=== PATIENT | female | born 1990 | race Caucasian/White ===

== ENCOUNTER → 2017-11-04 | Outpatient (CLI) | payer OTHER ==
[~2017-11-04] MED LIST: GLYB2.5T2 PO; IBUP-1222 PO; OXYC-302 PO; prenatal gummies PO
[2017-11-04 07:27] LABS: BASOPHILS # (AUTO) 0.03 x10^3/uL (0-0.1); BASOPHILS % (AUTO) 0 % (0-1); EOSINOPHILS # (AUTO) 0.09 x10^3/uL (0-0.4); EOSINOPHILS % (AUTO) 1 % (1-7); LYMPHOCYTES # (AUTO) 2.03 x10^3/uL (1-3.4); LYMPHOCYTES % (AUTO) 26 % (22-44); MD NO; MEAN CORPUSCULAR HGB CONC 33.8 g/dL (32.4-35.8); MEAN CORPUSCULAR VOLUME 88.7 fL (80-100); MEAN PLATELET VOLUME 7.4 fL (7.4-10.4); MONOCYTES # (AUTO) 0.54 x10^3/uL (0.2-0.8); MONOCYTES % (AUTO) 7 % (2-9); NEUTROPHILS # (AUTO) 5.18 x10^3/uL (1.8-6.8); NEUTROPHILS % (AUTO) 66 % (42-75); PLATELET COUNT 263 x10^3/uL (130-400); RED BLOOD COUNT 4.63 x10^6/uL (3.82-5.3); RED CELL DISTRIBUTION WIDTH 13.5 % (9.6-15.2)
[2017-11-04 07:34] LABS: CHLORIDE 105 mmol/L (98-107)
[2017-11-04 07:35] LABS: ALANINE AMINOTRANSFERASE 23 U/L (12-78); ALBUMIN 3.6 g/dL (3.4-5.0); ANION GAP 9 mmol/L (5-15); CHOLESTEROL, TOTAL 217 mg/dL (140-239); CREATININE 1.01 mg/dL (0.55-1.02)
[2017-11-04 07:37] LABS: ALKALINE PHOSPHATASE 82 U/L (45-117); BILIRUBIN,TOTAL 0.3 mg/dL (0.2-1.0); CHOL/HDL RATIO 4.7; HDL CHOL % 21 % (28-40); HDL CHOLESTEROL (DIRECT) 46 mg/dL (40-60); LDL CHOLESTEROL,CALCULATED 129 mg/dL (54-169); LDL/HDL RATIO 2.8 (0.5-3.0); TOTAL PROTEIN 7.5 g/dL (6.4-8.2); TRIGLYCERIDES 208 mg/dL (50-200); VLDL CHOLESTEROL 42 mg/dL (0-25)
[2017-11-04 09:12] LABS: HEMOGLOBIN A1C 5.4 % (4.2-6.3)
== END | disposition home or self-care (01) ==
LOC: LAB 07:06
PROVIDERS: ATTEND Plastic Surgery
DX: Z01.812 Encounter for preprocedural laboratory examination (principal); Z11.3 Encounter for screening for infections with a predominantly sexual mode of transmission; E78.00 Pure hypercholesterolemia, unspecified; R73.03 Prediabetes
CPT/HCPCS: 36415; 80053; 80061; 83036; 84702; 84703; 85025; 86592; 87806; G0475

== ENCOUNTER 2017-11-18 08:40 | Inpatient (IN) | payer OTHER ==
[~2017-11-18] VITALS: Ht 160 cm; Wt 80.3 kg
[2017-11-18 09:25] LABS: BASOPHILS # (AUTO) 0.04 x10^3/uL (0-0.1); BASOPHILS % (AUTO) 1 % (0-1); EOSINOPHILS # (AUTO) 0.04 x10^3/uL (0-0.4); EOSINOPHILS % (AUTO) 1 % (1-7); LYMPHOCYTES # (AUTO) 1.11 x10^3/uL (1-3.4); LYMPHOCYTES % (AUTO) 13 % (22-44); MD NO; MEAN CORPUSCULAR HEMOGLOBIN 29.6 pg (27.0-34.8); MEAN CORPUSCULAR HGB CONC 33.6 g/dL (32.4-35.8); MEAN CORPUSCULAR VOLUME 88.1 fL (80-100); MEAN PLATELET VOLUME 6.3 fL (7.4-10.4); MONOCYTES # (AUTO) 0.38 x10^3/uL (0.2-0.8); MONOCYTES % (AUTO) 4 % (2-9); NEUTROPHILS # (AUTO) 6.96 x10^3/uL (1.8-6.8); NEUTROPHILS % (AUTO) 82 % (42-75); PLATELET COUNT 215 x10^3/uL (130-400); RED BLOOD COUNT 4.14 x10^6/uL (3.82-5.3); RED CELL DISTRIBUTION WIDTH 13.9 % (9.6-15.2)
[2017-11-18 09:36] LABS: ALBUMIN 2.6 g/dL (3.4-5.0); ANION GAP 9 mmol/L (5-15); CALCIUM 8.7 mg/dL (8.5-10.1); CHLORIDE 104 mmol/L (98-107); CREATININE 0.73 mg/dL (0.55-1.02)
[2017-11-18] MEDS ORDERED: CEPH500T PO (10:09)
[2017-11-18] MEDS ORDERED: APIXABAN 5 MG TABLET PO ONE (10:30)
[2017-11-18] MEDS ORDERED: APIXABAN 5 MG TABLET ONE (11:04)
[2017-11-18] MEDS ORDERED: OMNIPAQUE 350 MG/ML, 100ML BOTTLE ONE (11:39)
[2017-11-18] MEDS ORDERED: ONDANSETRON 2MG/ML, 2ML IVPush PRN (13:00)
[2017-11-18] MEDS ORDERED: KETOROLAC 30 MG/1 ML IV PRN (13:00)
[2017-11-18] MEDS ORDERED: ACETAMINOPHEN 325 MG TABLET PO PRN (13:00)
[2017-11-18] MEDS ORDERED: POLYETHYLENE GLYCOL 17 GM PACKET PO PRN (13:00)
[2017-11-18] MEDS ORDERED: morphine SULFATE 10 MG/ML, 1ML IVPush PRN (13:00)
[2017-11-18 13:52] VITALS: BP 127/85
[2017-11-18] MEDS: ENOXAPARIN 80 MG/0.8 ML SQ SCH (14:25)
[2017-11-18] MEDS ORDERED: CEPHALEXIN 500 MG CAPSULE PO SCH (16:00)
[2017-11-18] MEDS ORDERED: WARFARIN 1 MG TABLET PO-COUM SCH (18:00)
[2017-11-18 18:02] LABS: INTERNATIONAL NORMALIZED RATIO 0.97 (0.93-1.1)
[2017-11-18] MEDS: OXYcodone/APAP 5/325MG TABLET PO PRN (18:21)
[2017-11-18] MEDS: WARFARIN 3 MG TABLET PO-COUM SCH (18:21)
[2017-11-18 19:40] VITALS: BP 116/80
[2017-11-18] MEDS: CEPHALEXIN 500 MG CAPSULE PO SCH (20:20)
[2017-11-19 01:54] VITALS: BP 112/74
[2017-11-19] MEDS: OXYcodone/APAP 5/325MG TABLET PO PRN ×3 (02:09→21:48)
[2017-11-19] MEDS: ENOXAPARIN 80 MG/0.8 ML SQ SCH ×2 (02:10→12:54)
[2017-11-19 06:09] LABS: INTERNATIONAL NORMALIZED RATIO 1.04 (0.93-1.1); PROTHROMBIN TIME 10.7 Seconds (9.6-11.5)
[2017-11-19 06:50] VITALS: BP 117/81
[2017-11-19] MEDS: CEPHALEXIN 500 MG CAPSULE PO SCH ×3 (08:47→21:00)
[2017-11-19 14:05] VITALS: BP 128/88
[2017-11-19] MEDS: WARFARIN 3 MG TABLET PO-COUM SCH (17:28)
[2017-11-19 19:51] VITALS: BP 117/82
[2017-11-20] MEDS: ENOXAPARIN 80 MG/0.8 ML SQ SCH (01:24)
[2017-11-20 02:05] VITALS: BP 117/76
[2017-11-20 06:04] LABS: INTERNATIONAL NORMALIZED RATIO 2.08 (0.93-1.1); PROTHROMBIN TIME 21.1 Seconds (9.6-11.5)
[2017-11-20] MEDS: CEPHALEXIN 500 MG CAPSULE PO SCH (08:40)
[2017-11-20 08:53] VITALS: BP 117/81
[2017-11-20] MEDS ORDERED: POLY17PO5 PO (10:46)
[2017-11-20] MEDS ORDERED: WARF5TAB PO (11:08)
[2017-11-20] MEDS ORDERED: SIMV40TA PO (11:43)
== END 2017-11-20 12:30 | disposition home or self-care (01) | DRG 175 ==
LOC: ED 10:37 → SUATTDRO 12:17 → EDIP 12:39 → 4EST 13:38
PROVIDERS: ADMIT Internal Medicine; ATTEND Internal Medicine
DX: I26.99 Other pulmonary embolism without acute cor pulmonale (principal); J96.91 Respiratory failure, unspecified with hypoxia; I82.432 Acute embolism and thrombosis of left popliteal vein; J98.11 Atelectasis; I82.412 Acute embolism and thrombosis of left femoral vein; E66.9 Obesity, unspecified; Z68.31 Body mass index [BMI] 31.0-31.9, adult; Z88.2 Allergy status to sulfonamides; E78.5 Hyperlipidemia, unspecified
CPT/HCPCS: 36415; 71275; 80048; 81240; 81241; 82040; 85025; 85300; 85301; 85303; 85598; 85610; 85613; 85670; 85730; 85732; 86146; 86147; 93005; 93306; 99285; G0378; J1650; Q9967

== ENCOUNTER → 2018-07-03 | Outpatient (CLI) | payer OTHER ==
[~2018-07-03] MED LIST changes: +CEPH500T PO; +POLY17PO5 PO; +SIMV40TA PO; +WARF5TAB PO
[2018-07-07 12:43] LABS: HEMOGLOBIN A1C 5.8 % (4.2-6.3)
== END | disposition home or self-care (01) ==
LOC: LAB 10:43
PROVIDERS: ATTEND Student in an Organized Health Care Education/Training Program
DX: Z34.82 Encounter for supervision of other normal pregnancy, second trimester (principal); Z3A.17 17 weeks gestation of pregnancy
CPT/HCPCS: 36415; 82105; 82677; 82950; 83036; 84702; 86336

== ENCOUNTER 2018-07-31 07:09 | Outpatient (CLI) | payer OTHER | END 2018-07-31 23:59 | disposition home or self-care (01) | LOC: LAB 07:09 | PROVIDERS: ATTEND Student in an Organized Health Care Education/Training Program | DX: Z34.82 Encounter for supervision of other normal pregnancy, second trimester (principal) | CPT/HCPCS: 36415; 82951 ==

== ENCOUNTER 2018-08-24 10:39 | Emergency (ER) | payer OTHER ==
[~2018-08-24] VITALS: Ht 160 cm; Wt 95.2 kg
--- NOTE | 2018-08-24 10:59 | NUR ---
L&D RN AT BEDSIDE FOR HEART TONES. HEART TONES HEARD AND PER L&D RN AT A RATE OF 130S.
[2018-08-24] MEDS ORDERED: PREN-3 PO (11:09)
[2018-08-24] MEDS ORDERED: ENOX40SY4 SQ (11:09)
--- NOTE | 2018-08-24 11:09 | NUR ---
PT ARRIVED AMBULATORY TO ROOM 37. PT DRESSED IN GOWN AND ATTACHED TO MONITOR. PT C/O CHEST PAIN, LOCALIZED TO LEFT SIDE SINCE YESTERDAY 08/23. PT STATES IT DOES NOT RADIATE, STATES NO EXACERBATING OR ALLEVIATING FACTORS, AND STATES IT IS SHARP AND ACHY. PT HAS HX GESTATIONAL DM AND PE IN NOVEMBER (TAKES LOVENOX SQ DAILY). PT AAO X 4, LUNG SOUNDS CLEAR AND O2 SAT 98% ON ROOM AIR. SINUS RHYTHM ON MONITOR, RATE 60-70S. BP STABLE 121/69. PULSES PRESENT THROUGHOUT, APPEARS IN NO ACUTE DISTRESS, RESTING COMFORTABLY ON GURNEY. PT NOT EXPERIENCING ANY ABDOMINAL CRAMPING OR VAGINAL BLEEDING, NO SOB, FEVERS/CHILLS AT HOME. PT STATES BILATERAL NUMBNESS/TINGLING/PAIN IN ARMS. PT ALSO STATES UPPER BACK PAIN WELL.
--- NOTE | 2018-08-24 11:13 | NUR ---
AT BEDSIDE FOR EXAM.
[2018-08-24] MEDS ORDERED: ACETAMINOPHEN 500 MG TABLET PO ONE (11:30)
[2018-08-24 11:33] LABS: BASOPHILS # (AUTO) 0.01 x10^3/uL (0-0.1); BASOPHILS % (AUTO) 0 % (0-1); EOSINOPHILS # (AUTO) 0.07 x10^3/uL (0-0.4); EOSINOPHILS % (AUTO) 1 % (1-7); LYMPHOCYTES # (AUTO) 2.26 x10^3/uL (1-3.4); LYMPHOCYTES % (AUTO) 36 % (22-44); MD NO; MEAN CORPUSCULAR HEMOGLOBIN 24.3 pg (27.0-34.8); MEAN CORPUSCULAR HGB CONC 31.9 g/dL (32.4-35.8); MEAN PLATELET VOLUME 8.1 fL (7.4-10.4); MONOCYTES # (AUTO) 0.48 x10^3/uL (0.2-0.8); MONOCYTES % (AUTO) 8 % (2-9); NEUTROPHILS # (AUTO) 3.38 x10^3/uL (1.8-6.8); NEUTROPHILS % (AUTO) 55 % (42-75); PLATELET COUNT 215 x10^3/uL (130-400); RED BLOOD COUNT 3.62 x10^6/uL (3.82-5.3); RED CELL DISTRIBUTION WIDTH 16.2 % (9.6-15.2)
[2018-08-24 11:41] LABS: ALBUMIN 2.5 g/dL (3.4-5.0); ANION GAP 8 mmol/L (5-15); CALCIUM 8.4 mg/dL (8.5-10.1); CHLORIDE 111 mmol/L (98-107); INTERNATIONAL NORMALIZED RATIO 0.93 (0.93-1.1); PROTHROMBIN TIME 9.8 Seconds (9.6-11.5)
--- NOTE | 2018-08-24 11:43 | NUR ---
PT TO US.
[2018-08-24] MEDS ORDERED: ACETAMINOPHEN 500 MG TABLET ONE (12:00)
--- NOTE | 2018-08-24 12:49 | NUR ---
PT BACK FROM US, RESTING IN [facility], AT BEDSIDE. CALL LIGHT WITHIN REACH.
[2018-08-24 12:52] VITALS: BP 130/79
--- NOTE | 2018-08-24 12:53 | NUR ---
TYLENOL OFFERED PER MD ORDER, PT REFUSED.
--- NOTE | 2018-08-24 13:53 | NUR ---
Patient/Caregiver given discharge instructions and they have confirmed that they understand the instructions. Patient ambulatory with steady gait.
== END 2018-08-24 13:54 | disposition home or self-care (01) ==
LOC: ED 13:20
DX: O26.892 Other specified pregnancy related conditions, second trimester (principal); M79.18 Myalgia, other site; R07.89 Other chest pain; Z3A.25 25 weeks gestation of pregnancy
CPT/HCPCS: 36415; 71045; 80048; 82040; 85025; 85610; 85730; 93005; 93970; 99284

== ENCOUNTER 2018-09-04 12:05 | Inpatient (IN) | payer OTHER ==
[~2018-09-04] VITALS: Ht 160 cm; Wt 98.7 kg
[~2018-09-04 12:05] MED LIST changes: +ENOX40SY4 SQ; +PREN-3 PO
[2018-09-04] MEDS ORDERED: OXYTOCIN 30U/ 0.9% NaCL 500ML 500 ML IV ONE ×2 (12:07→13:11)
[2018-09-04] MEDS ORDERED: LACTATED RINGERS 1,000 ML IV SCH (12:07)
[2018-09-04] MEDS ORDERED: OXYTOCIN 30U/ 0.9% NaCL 500ML 500 ML IV PRN ×2 (12:07→13:11)
[2018-09-04] MEDS ORDERED: D5%-LACTATED RINGERS 1,000 ML IV SCH (12:07)
[2018-09-04] MEDS ORDERED: ACETAMINOPHEN 325 MG TABLET PO PRN ×5 (12:30→13:30)
[2018-09-04] MEDS ORDERED: RHOGAM FROM BLOOD BANK 1 NOTE EA IM/IV PRN ×2 (12:30→13:30)
[2018-09-04] MEDS ORDERED: FENTANYL PF 100 MCG/2ML IVPush PRN ×2 (12:30)
[2018-09-04] MEDS ORDERED: morphine SULFATE 10 MG/ML, 1ML IVPush PRN ×2 (12:30)
[2018-09-04] MEDS ORDERED: ONDANSETRON 2MG/ML, 2ML IVPush PRN (12:30)
[2018-09-04] MEDS ORDERED: HYDROcodone/APAP 5/325 TABLET PO PRN (12:30)
[2018-09-04] MEDS ORDERED: OXYcodone/APAP 5/325MG TABLET PO PRN ×3 (12:30→13:30)
[2018-09-04] MEDS ORDERED: SODIUM CITRATE/CITRIC ACID 15 ML UDC PO PRN (12:30)
[2018-09-04] MEDS ORDERED: METOCLOPRAMIDE 5 MG/ML, 2ML IVPush PRN (12:30)
[2018-09-04] MEDS ORDERED: SODIUM CHLORIDE FLUSH 10ML SYR IVF PRN (12:30)
[2018-09-04 12:54] LABS: AMPHETAMINE SCREEN, URINE Negative (Negative); BARBITURATE SCREEN, URINE Negative (Negative); BENZODIAZEPINE SCREEN, URINE Negative (Negative); CANNABINOID SCREEN, URINE Positive (Negative); COCAINE SCREEN, URINE Negative (Negative); METHADONE SCREEN, URINE Negative (Negative); OPIATE SCREEN, URINE Negative (Negative)
[2018-09-04] MEDS ORDERED: MAGNESIUM SULFATE PMX 4GM/100M 100 ML IVPB ONE (13:00)
[2018-09-04] MEDS ORDERED: MAGNESIUM SULF. PMX 20GM/500ML 500 ML IV ONE ×2 (13:03→21:43)
[2018-09-04] MEDS ORDERED: MAGNESIUM SULFATE PMX 4GM/100M 100 ML ONE (13:03)
[2018-09-04] MEDS ORDERED: MISOPROSTOL 200 MCG TABLET ONE ×2 (13:18→20:42)
[2018-09-04] MEDS ORDERED: hydrALAzine 20 MG/ML, 1ML IVPush ONE (13:30)
[2018-09-04] MEDS ORDERED: OXYcodone/APAP 10/325MG TABLET PO PRN ×2 (13:30)
[2018-09-04] MEDS ORDERED: MISOPROSTOL 200 MCG TABLET PR PRN (13:30)
[2018-09-04] MEDS ORDERED: CARBOPROST TROMETHAMINE 250 MCG/ML, 1ML IM PRN (13:30)
[2018-09-04] MEDS ORDERED: IBUPROFEN 600 MG TABLET PO PRN (13:30)
[2018-09-04] MEDS: MISOPROSTOL 200 MCG TABLET VG SCH ×2 (13:30→14:21)
[2018-09-04] MEDS ORDERED: LABETALOL 5 MG/ML SYR. (IV ONLY) IVPush PRN ×3 (13:30)
[2018-09-04] MEDS: MAGNESIUM SULF. PMX 20GM/500ML 500 ML IV SCH ×2 (13:34→22:03)
[2018-09-04 13:59] LABS: BASOPHILS # (AUTO) 0.02 x10^3/uL (0-0.1); BASOPHILS % (AUTO) 0 % (0-1); EOSINOPHILS # (AUTO) 0.04 x10^3/uL (0-0.4); EOSINOPHILS % (AUTO) 0 % (1-7); LYMPHOCYTES # (AUTO) 2.81 x10^3/uL (1-3.4); LYMPHOCYTES % (AUTO) 28 % (22-44); MD NO; MEAN CORPUSCULAR HEMOGLOBIN 22.9 pg (27.0-34.8); MEAN CORPUSCULAR HGB CONC 30.4 g/dL (32.4-35.8); MEAN CORPUSCULAR VOLUME 75.1 fL (80-100); MEAN PLATELET VOLUME 8.6 fL (7.4-10.4); MONOCYTES # (AUTO) 0.72 x10^3/uL (0.2-0.8); MONOCYTES % (AUTO) 7 % (2-9); NEUTROPHILS # (AUTO) 6.34 x10^3/uL (1.8-6.8); NEUTROPHILS % (AUTO) 64 % (42-75); PLATELET COUNT 215 x10^3/uL (130-400); RED BLOOD COUNT 4.13 x10^6/uL (3.82-5.3); RED CELL DISTRIBUTION WIDTH 16.8 % (9.6-15.2)
[2018-09-04 14:20] LABS: FREE T4 (FREE THYROXINE) 0.8 ng/dL (0.76-1.46)
[2018-09-04] MEDS ORDERED: OXYTOCIN 30U/ 0.9% NaCL 500ML 500 ML ONE (14:42)
[2018-09-04 14:43] LABS: ALANINE AMINOTRANSFERASE 12 U/L (12-78); ALBUMIN 2.1 g/dL (3.4-5.0); ANION GAP 7 mmol/L (5-15); CALCIUM 8.2 mg/dL (8.5-10.1); CHLORIDE 112 mmol/L (98-107); CREATININE 1.09 mg/dL (0.55-1.02)
[2018-09-04 14:46] LABS: ALKALINE PHOSPHATASE 106 U/L (45-117); BILIRUBIN,TOTAL 0.2 mg/dL (0.2-1.0); TOTAL PROTEIN 5.6 g/dL (6.4-8.2)
[2018-09-04 15:06] LABS: HEMOGLOBIN A1C 5.9 % (4.2-6.3)
[2018-09-04 15:52] LABS: MICROSCOPIC AUTO
[2018-09-04 16:23] LABS: INTERNATIONAL NORMALIZED RATIO 0.89 (0.93-1.1); PROTHROMBIN TIME 9.4 Seconds (9.6-11.5)
[2018-09-04] MEDS ORDERED: FENTANYL/BUPIV./NS/PF 250 ML EPIDCONT ONE (18:00)
[2018-09-04 18:06] LABS: BASOPHILS # (AUTO) 0.03 x10^3/uL (0-0.1); BASOPHILS % (AUTO) 0 % (0-1); EOSINOPHILS # (AUTO) 0.18 x10^3/uL (0-0.4); EOSINOPHILS % (AUTO) 2 % (1-7); LYMPHOCYTES # (AUTO) 2.71 x10^3/uL (1-3.4); LYMPHOCYTES % (AUTO) 23 % (22-44); MD NO; MEAN CORPUSCULAR HGB CONC 31.8 g/dL (32.4-35.8); MEAN CORPUSCULAR VOLUME 75.4 fL (80-100); MEAN PLATELET VOLUME 8.4 fL (7.4-10.4); MONOCYTES # (AUTO) 0.76 x10^3/uL (0.2-0.8); MONOCYTES % (AUTO) 6 % (2-9); NEUTROPHILS # (AUTO) 8.13 x10^3/uL (1.8-6.8); NEUTROPHILS % (AUTO) 69 % (42-75); PLATELET COUNT 206 x10^3/uL (130-400); RED BLOOD COUNT 4.16 x10^6/uL (3.82-5.3); RED CELL DISTRIBUTION WIDTH 16.2 % (9.6-15.2)
[2018-09-04 18:07] LABS: MICROSCOPIC AUTO
[2018-09-04 18:14] LABS: INTERNATIONAL NORMALIZED RATIO 0.88 (0.93-1.1); PROTHROMBIN TIME 9.3 Seconds (9.6-11.5)
[2018-09-04 18:15] LABS: CULTURE INDICATED? NO
[2018-09-04 18:17] LABS: ALANINE AMINOTRANSFERASE 12 U/L (12-78); ALBUMIN 2.2 g/dL (3.4-5.0); ANION GAP 8 mmol/L (5-15); CALCIUM 7.9 mg/dL (8.5-10.1); CHLORIDE 110 mmol/L (98-107); CREATININE 1.22 mg/dL (0.55-1.02)
[2018-09-04 18:19] LABS: ALKALINE PHOSPHATASE 109 U/L (45-117); TOTAL PROTEIN 5.6 g/dL (6.4-8.2)
[2018-09-04 18:24] LABS: BILIRUBIN,TOTAL < 0.1 mg/dL (0.2-1.0)
[2018-09-04] MEDS ORDERED: FENTANYL PF 500 MCG, BUPIVACAINE/PF 0.5%, 30ML 62.5 ML in SODIUM CHLORIDE 0.9% 177.5 ML EPIDCONT SCH (18:30)
[2018-09-04] MEDS ORDERED: BUPIVACAINE 0.25% ONE (18:33)
[2018-09-04] MEDS: LACTATED RINGERS 1,000 ML IV SCH (18:37)
[2018-09-04] MEDS ORDERED: MISOPROSTOL 25 MCG TABLET ONE (20:37)
[2018-09-04 21:41] LABS: BASOPHILS # (AUTO) 0.01 x10^3/uL (0-0.1); BASOPHILS % (AUTO) 0 % (0-1); EOSINOPHILS # (AUTO) 0.03 x10^3/uL (0-0.4); EOSINOPHILS % (AUTO) 0 % (1-7); LYMPHOCYTES # (AUTO) 2.55 x10^3/uL (1-3.4); LYMPHOCYTES % (AUTO) 21 % (22-44); MD NO; MEAN CORPUSCULAR HEMOGLOBIN 23.2 pg (27.0-34.8); MEAN CORPUSCULAR HGB CONC 31.2 g/dL (32.4-35.8); MEAN CORPUSCULAR VOLUME 74.5 fL (80-100); MEAN PLATELET VOLUME 8.3 fL (7.4-10.4); MONOCYTES # (AUTO) 0.76 x10^3/uL (0.2-0.8); MONOCYTES % (AUTO) 6 % (2-9); NEUTROPHILS # (AUTO) 8.71 x10^3/uL (1.8-6.8); NEUTROPHILS % (AUTO) 72 % (42-75); PLATELET COUNT 209 x10^3/uL (130-400); RED BLOOD COUNT 4.09 x10^6/uL (3.82-5.3); RED CELL DISTRIBUTION WIDTH 17.1 % (9.6-15.2)
[2018-09-04 21:51] LABS: INTERNATIONAL NORMALIZED RATIO 0.89 (0.93-1.1); PROTHROMBIN TIME 9.4 Seconds (9.6-11.5)
[2018-09-04 21:54] LABS: ALANINE AMINOTRANSFERASE 12 U/L (12-78); ANION GAP 12 mmol/L (5-15); CALCIUM 7.8 mg/dL (8.5-10.1); CHLORIDE 107 mmol/L (98-107); CREATININE 1.19 mg/dL (0.55-1.02)
[2018-09-04 21:56] LABS: ALKALINE PHOSPHATASE 100 U/L (45-117); BILIRUBIN,TOTAL 0.1 mg/dL (0.2-1.0); TOTAL PROTEIN 5.5 g/dL (6.4-8.2)
[2018-09-04] MEDS ORDERED: FENTANYL/BUPIV./NS/PF 250 ML EPIDCONT SCH (22:30)
[2018-09-05] MEDS ORDERED: MISOPROSTOL 200 MCG TABLET ONE ×3 (02:45→11:58)
[2018-09-05] MEDS: MISOPROSTOL 200 MCG TABLET VG SCH ×2 (02:46→08:46)
[2018-09-05] MEDS ORDERED: MAGNESIUM SULF. PMX 20GM/500ML 500 ML IV ONE ×2 (07:00→20:04)
[2018-09-05] MEDS: LACTATED RINGERS 1,000 ML IV SCH (07:04)
[2018-09-05] MEDS: MAGNESIUM SULF. PMX 20GM/500ML 500 ML IV SCH ×2 (07:05→20:15)
[2018-09-05] MEDS ORDERED: hydrALAzine 20 MG/ML, 1ML ONE (09:35)
[2018-09-05] MEDS ORDERED: hydrALAzine 20 MG/ML, 1ML IVPush ONE ×4 (10:00)
[2018-09-05 10:23] LABS: BASOPHILS # (AUTO) 0.03 x10^3/uL (0-0.1); BASOPHILS % (AUTO) 0 % (0-1); EOSINOPHILS # (AUTO) 0.01 x10^3/uL (0-0.4); EOSINOPHILS % (AUTO) 0 % (1-7); LYMPHOCYTES # (AUTO) 2.15 x10^3/uL (1-3.4); LYMPHOCYTES % (AUTO) 15 % (22-44); MD NO; MEAN CORPUSCULAR HEMOGLOBIN 23.3 pg (27.0-34.8); MEAN CORPUSCULAR HGB CONC 31.4 g/dL (32.4-35.8); MEAN PLATELET VOLUME 8.5 fL (7.4-10.4); MONOCYTES # (AUTO) 0.78 x10^3/uL (0.2-0.8); MONOCYTES % (AUTO) 6 % (2-9); NEUTROPHILS # (AUTO) 11.39 x10^3/uL (1.8-6.8); NEUTROPHILS % (AUTO) 79 % (42-75); PLATELET COUNT 240 x10^3/uL (130-400); RED CELL DISTRIBUTION WIDTH 16.6 % (9.6-15.2)
[2018-09-05] MEDS ORDERED: ONDANSETRON 2MG/ML, 2ML ONE (10:23)
[2018-09-05] MEDS ORDERED: ONDANSETRON 2MG/ML, 2ML IVPush PRN (10:30)
[2018-09-05 10:33] LABS: ALANINE AMINOTRANSFERASE 12 U/L (12-78); ALBUMIN 2.3 g/dL (3.4-5.0); ANION GAP 12 mmol/L (5-15); CALCIUM 7.8 mg/dL (8.5-10.1); CHLORIDE 103 mmol/L (98-107)
[2018-09-05 10:39] LABS: ALKALINE PHOSPHATASE 126 U/L (45-117); BILIRUBIN, DIRECT < 0.1 mg/dL (0.1-0.2); BILIRUBIN,TOTAL 0.2 mg/dL (0.2-1.0); CREATININE 1.29 mg/dL (0.55-1.02); TOTAL PROTEIN 6.3 g/dL (6.4-8.2)
[2018-09-05 10:48] LABS: INTERNATIONAL NORMALIZED RATIO 0.88 (0.93-1.1); PROTHROMBIN TIME 9.3 Seconds (9.6-11.5)
[2018-09-05] MEDS ORDERED: LIDOCAINE 1%, 20ML ONE (11:59)
[2018-09-05] MEDS ORDERED: OXYTOCIN 30U/ 0.9% NaCL 500ML 500 ML IV SCH (12:50)
[2018-09-05] MEDS ORDERED: MAGNESIUM HYDROXIDE 8%, 30ML UDC PO PRN (13:00)
[2018-09-05] MEDS ORDERED: ACETAMINOPHEN 325 MG TABLET PO PRN ×2 (13:00)
[2018-09-05] MEDS ORDERED: OXYcodone/APAP 5/325MG TABLET PO PRN (13:00)
[2018-09-05] MEDS ORDERED: MEASLES,MUMPS&RUBELLA VACC/PF 0.5 ML SQ-VACC PRN (13:00)
[2018-09-05] MEDS ORDERED: DIPH,PERTUSS(ACELL),TET VAC/PF NC IM-VACC PRN (13:00)
[2018-09-05] MEDS ORDERED: ONDANSETRON 2MG/ML, 2ML IV PRN (13:00)
[2018-09-05] MEDS ORDERED: RHOGAM FROM BLOOD BANK 1 NOTE EA IM/IV ONE (13:00)
[2018-09-05] MEDS ORDERED: CALCIUM CARBONATE 500 MG TAB.CHEW PO PRN (13:00)
[2018-09-05] MEDS ORDERED: IBUPROFEN 600 MG TABLET PO PRN (13:00)
[2018-09-05] MEDS ORDERED: MISOPROSTOL 200 MCG TABLET PR PRN (13:00)
[2018-09-05] MEDS ORDERED: OXYTOCIN 30U/ 0.9% NaCL 500ML 500 ML ONE (15:13)
[2018-09-05] MEDS: ENOXAPARIN 40 MG/0.4 ML SQ SCH (18:10)
[2018-09-05 22:21] LABS: BASOPHILS # (AUTO) 0.02 x10^3/uL (0-0.1); BASOPHILS % (AUTO) 0 % (0-1); EOSINOPHILS # (AUTO) 0.19 x10^3/uL (0-0.4); EOSINOPHILS % (AUTO) 1 % (1-7); LYMPHOCYTES # (AUTO) 3.19 x10^3/uL (1-3.4); LYMPHOCYTES % (AUTO) 22 % (22-44); MD NO; MEAN CORPUSCULAR HEMOGLOBIN 23.9 pg (27.0-34.8); MEAN CORPUSCULAR HGB CONC 31.7 g/dL (32.4-35.8); MEAN CORPUSCULAR VOLUME 75.4 fL (80-100); MEAN PLATELET VOLUME 8.2 fL (7.4-10.4); MONOCYTES # (AUTO) 0.94 x10^3/uL (0.2-0.8); MONOCYTES % (AUTO) 6 % (2-9); NEUTROPHILS # (AUTO) 10.48 x10^3/uL (1.8-6.8); NEUTROPHILS % (AUTO) 71 % (42-75); PLATELET COUNT 194 x10^3/uL (130-400); RED BLOOD COUNT 4.14 x10^6/uL (3.82-5.3); RED CELL DISTRIBUTION WIDTH 16.7 % (9.6-15.2)
[2018-09-05 22:31] LABS: ALANINE AMINOTRANSFERASE 12 U/L (12-78); ALBUMIN 1.9 g/dL (3.4-5.0); ANION GAP 10 mmol/L (5-15); CALCIUM 7.1 mg/dL (8.5-10.1); CHLORIDE 105 mmol/L (98-107); CREATININE 1.15 mg/dL (0.55-1.02)
[2018-09-05 22:33] LABS: ALKALINE PHOSPHATASE 103 U/L (45-117); BILIRUBIN, DIRECT < 0.1 mg/dL (0.1-0.2); BILIRUBIN,TOTAL 0.2 mg/dL (0.2-1.0); TOTAL PROTEIN 5.4 g/dL (6.4-8.2)
[2018-09-06 05:03] LABS: BASOPHILS # (AUTO) 0.03 x10^3/uL (0-0.1); BASOPHILS % (AUTO) 0 % (0-1); EOSINOPHILS # (AUTO) 0.08 x10^3/uL (0-0.4); EOSINOPHILS % (AUTO) 1 % (1-7); LYMPHOCYTES # (AUTO) 2.41 x10^3/uL (1-3.4); LYMPHOCYTES % (AUTO) 24 % (22-44); MD NO; MEAN CORPUSCULAR HEMOGLOBIN 23.4 pg (27.0-34.8); MEAN CORPUSCULAR HGB CONC 31.2 g/dL (32.4-35.8); MEAN CORPUSCULAR VOLUME 75.1 fL (80-100); MEAN PLATELET VOLUME 8.5 fL (7.4-10.4); MONOCYTES % (AUTO) 7 % (2-9); NEUTROPHILS # (AUTO) 6.67 x10^3/uL (1.8-6.8); NEUTROPHILS % (AUTO) 68 % (42-75); PLATELET COUNT 171 x10^3/uL (130-400); RED BLOOD COUNT 4.07 x10^6/uL (3.82-5.3)
[2018-09-06 05:08] LABS: ALBUMIN 1.8 g/dL (3.4-5.0); ANION GAP 8 mmol/L (5-15); BILIRUBIN, DIRECT < 0.1 mg/dL (0.1-0.2); CALCIUM 7.2 mg/dL (8.5-10.1); CHLORIDE 108 mmol/L (98-107)
[2018-09-06 05:11] LABS: ALANINE AMINOTRANSFERASE 12 U/L (12-78); ALKALINE PHOSPHATASE 100 U/L (45-117); BILIRUBIN,TOTAL 0.2 mg/dL (0.2-1.0); CREATININE 1.05 mg/dL (0.55-1.02); TOTAL PROTEIN 5.2 g/dL (6.4-8.2)
[2018-09-06] MEDS ORDERED: PRENATAL VIT/IRON/FA 1 EACH TABLET ONE (09:13)
[2018-09-06] MEDS: PRENATAL VIT/IRON/FA 1 EACH TABLET PO SCH (09:15)
[2018-09-06] MEDS ORDERED: DOCUSATE 100 MG CAPSULE ONE (11:12)
[2018-09-06] MEDS: DOCUSATE 100 MG CAPSULE PO PRN (11:13)
[2018-09-06] MEDS ORDERED: MAGNESIUM SULF. PMX 20GM/500ML 500 ML IV ONE (12:32)
[2018-09-06] MEDS: MAGNESIUM SULF. PMX 20GM/500ML 500 ML IV SCH (13:31)
[2018-09-06] MEDS ORDERED: LABETALOL 100 MG TABLET ONE ×2 (15:01→22:22)
[2018-09-06] MEDS: LABETALOL 100 MG TABLET PO SCH ×2 (15:03→22:24)
[2018-09-06] MEDS: LACTATED RINGERS 1,000 ML IV SCH (15:46)
[2018-09-06] MEDS: ENOXAPARIN 40 MG/0.4 ML SQ SCH (18:06)
[2018-09-06] MEDS ORDERED: LACTATED RINGERS 1,000 ML IV SCH (18:30)
[2018-09-06] MEDS ORDERED: IBUPROFEN 600 MG TABLET ONE (20:38)
[2018-09-07] MEDS ORDERED: MAGNESIUM SULF. PMX 20GM/500ML 500 ML IV ONE (01:54)
[2018-09-07] MEDS: MAGNESIUM SULF. PMX 20GM/500ML 500 ML IV SCH (01:58)
[2018-09-07 05:08] LABS: BASOPHILS # (AUTO) 0.02 x10^3/uL (0-0.1); BASOPHILS % (AUTO) 0 % (0-1); EOSINOPHILS # (AUTO) 0.23 x10^3/uL (0-0.4); EOSINOPHILS % (AUTO) 2 % (1-7); LYMPHOCYTES # (AUTO) 2.71 x10^3/uL (1-3.4); LYMPHOCYTES % (AUTO) 25 % (22-44); MD NO; MEAN CORPUSCULAR HEMOGLOBIN 23.8 pg (27.0-34.8); MEAN CORPUSCULAR VOLUME 76.9 fL (80-100); MEAN PLATELET VOLUME 8.1 fL (7.4-10.4); MONOCYTES # (AUTO) 0.67 x10^3/uL (0.2-0.8); MONOCYTES % (AUTO) 6 % (2-9); NEUTROPHILS # (AUTO) 7.05 x10^3/uL (1.8-6.8); NEUTROPHILS % (AUTO) 66 % (42-75); PLATELET COUNT 164 x10^3/uL (130-400); RED BLOOD COUNT 3.65 x10^6/uL (3.82-5.3); RED CELL DISTRIBUTION WIDTH 16.9 % (9.6-15.2)
[2018-09-07 05:20] LABS: ALBUMIN 1.8 g/dL (3.4-5.0); ANION GAP 10 mmol/L (5-15); CALCIUM 7.1 mg/dL (8.5-10.1); CHLORIDE 108 mmol/L (98-107)
[2018-09-07 05:21] LABS: BILIRUBIN, DIRECT < 0.1 mg/dL (0.1-0.2)
[2018-09-07 05:24] LABS: ALANINE AMINOTRANSFERASE 13 U/L (12-78); ALKALINE PHOSPHATASE 87 U/L (45-117); BILIRUBIN,TOTAL 0.2 mg/dL (0.2-1.0); CREATININE 1.05 mg/dL (0.55-1.02); TOTAL PROTEIN 5.1 g/dL (6.4-8.2)
[2018-09-07] MEDS ORDERED: PRENATAL VIT/IRON/FA 1 EACH TABLET ONE (08:14)
[2018-09-07] MEDS ORDERED: DOCUSATE 100 MG CAPSULE ONE (08:15)
[2018-09-07] MEDS: PRENATAL VIT/IRON/FA 1 EACH TABLET PO SCH (08:16)
[2018-09-07] MEDS: DOCUSATE 100 MG CAPSULE PO PRN (08:16)
[2018-09-07] MEDS: SODIUM CHLORIDE FLUSH 3ML SYRINGE IVF SCH ×2 (09:00→21:22)
[2018-09-07] MEDS ORDERED: LABETALOL 100 MG TABLET ONE ×2 (09:11→21:08)
[2018-09-07] MEDS: LABETALOL 100 MG TABLET PO SCH ×2 (09:13→21:20)
[2018-09-07] MEDS: HYDROXYZINE PAMOATE 50MG CAP PO PRN ×2 (14:16→21:48)
[2018-09-07] MEDS: ENOXAPARIN 40 MG/0.4 ML SQ SCH (18:19)
[2018-09-08] MEDS ORDERED: LABE100T6 PO (07:08)
[2018-09-08] MEDS ORDERED: SERT50TA PO (07:09)
[2018-09-08] MEDS ORDERED: HYDR50CA PO (07:09)
[2018-09-08] MEDS ORDERED: LABETALOL 100 MG TABLET ONE (07:52)
[2018-09-08] MEDS: LABETALOL 100 MG TABLET PO SCH (08:08)
[2018-09-08] MEDS ORDERED: SERTRALINE 50MG TABLET PO SCH (09:00)
== END 2018-09-08 10:00 | disposition home or self-care (01) | DRG 805 ==
LOC: LDIP 12:05
PROVIDERS: ADMIT Student in an Organized Health Care Education/Training Program; ATTEND Student in an Organized Health Care Education/Training Program
PROC: 10E0XZZ Delivery of Products of Conception, External Approach (ICD-10-PCS; principal; 2018-09-04)
PROC: 3E0R3BZ Introduction of Anesthetic Agent into Spinal Canal, Percutaneous Approach (ICD-10-PCS; 2018-09-04)
PROC: 00HU33Z Insertion of Infusion Device into Spinal Canal, Percutaneous Approach (ICD-10-PCS; 2018-09-04)
PROC: 0T9B70Z Drainage of Bladder with Drainage Device, Via Natural or Artificial Opening (ICD-10-PCS; 2018-09-04)
DX: O36.4XX0 Maternal care for intrauterine death, not applicable or unspecified (principal); O60.14X0 Preterm labor third trimester with preterm delivery third trimester, not applicable or unspecified; Z37.1 Single stillbirth; O14.14 Severe pre-eclampsia complicating childbirth; Z3A.27 27 weeks gestation of pregnancy; O99.344 Other mental disorders complicating childbirth; F41.9 Anxiety disorder, unspecified; O32.1XX0 Maternal care for breech presentation, not applicable or unspecified; O77.0 Labor and delivery complicated by meconium in amniotic fluid; Z86.718 Personal history of other venous thrombosis and embolism; Z86.711 Personal history of pulmonary embolism
CPT/HCPCS: 36415; 80053; 80307; 81001; 82248; 83036; 83735; 84439; 84443; 84550; 85025; 85300; 85301; 85384; 85460; 85598; 85610; 85613; 85670; 85730; 85732; 86146; 86147; 86592; 86644; 86645; 86694; 86695; 86696; 86747; 86762; 86777; 86778; 86803; 86850; 86900; 87340; 87806; 88305; G0378; J1650; J2405; G0475; J0360; J3475; J7120

== ENCOUNTER → 2019-05-10 | Outpatient (CLI) | payer OTHER ==
[~2019-05-10] MED LIST changes: +HYDR50CA PO; +LABE100T6 PO; +OMNIPAQUE 350 MG/ML, 150 ML BOTTLE ONE; +SERT50TA PO
== END | disposition home or self-care (01) ==
LOC: CFH 14:22
PROVIDERS: ATTEND Family Medicine
DX: N28.1 Cyst of kidney, acquired (principal); M51.27 Other intervertebral disc displacement, lumbosacral region
CPT/HCPCS: 74178; Q9967

== ENCOUNTER 2020-05-30 08:38 | Emergency (ER) | payer OTHER ==
[~2020-05-30] VITALS: Ht 160 cm; Wt 62.0 kg
[~2020-05-30 08:38] MED LIST changes: -OMNIPAQUE 350 MG/ML, 150 ML BOTTLE ONE; -OXYC-302 PO; +OXYC1TAB14 PO; -WARF5TAB PO; +WARF5TAB2 PO
[2020-05-30] MEDS ORDERED: SODIUM CHLORIDE 0.9% 1,000ML IVBOLUS ONE (09:30)
[2020-05-30 09:33] LABS: BASOPHILS % (AUTO) 1 % (0-1); EOSINOPHILS % (AUTO) 0 % (1-7); LYMPHOCYTES % (AUTO) 12 % (22-44); MD NO; MEAN CORPUSCULAR HEMOGLOBIN 28.6 pg (27.0-34.8); MEAN CORPUSCULAR HGB CONC 33.9 g/dL (32.4-35.8); MEAN PLATELET VOLUME 7.7 fL (7.4-10.4); MONOCYTES % (AUTO) 7 % (2-9); NEUTROPHILS % (AUTO) 80 % (42-75); PLATELET COUNT 228 x10^3/uL (130-400); RED BLOOD COUNT 4.29 x10^6/uL (3.82-5.3); RED CELL DISTRIBUTION WIDTH 14.2 % (9.6-15.2)
--- NOTE | 2020-05-30 09:37 | NUR ---
LOUISE GARZA WAS AT [facility] FOR EVAL. IVF PER APR. PT TO US. VSS. SB/NSR, HAD NEAR SYNCOPAL IN CAR, DENIES NAUSEA AT THIS MOMENT. AWARE OF NEED FOR UA.
[2020-05-30 09:44] LABS: ALBUMIN 3.9 g/dL (3.4-5.0); ANION GAP 7 mmol/L (5-15); CALCIUM 8.9 mg/dL (8.5-10.1); CHLORIDE 107 mmol/L (98-107); CREATININE 0.97 mg/dL (0.55-1.02)
--- NOTE | 2020-05-30 09:57 | NUR ---
report to brent gudino. as
[2020-05-30 10:58] LABS: MICROSCOPIC INDICATED
--- NOTE | 2020-05-30 11:26 | NUR ---
PT RESTING IN [facility]. AWAITING MRI
[2020-05-30] MEDS ORDERED: ONDANSETRON 2MG/ML, 2ML ONE (11:46)
[2020-05-30] MEDS ORDERED: MORPHINE SULFATE 4 MG/ML, 1ML ONE (11:46)
--- NOTE | 2020-05-30 11:52 | NUR ---
PT REQ PAIN MEDS. SEE MAR FOR INTERVENTIONS
[2020-05-30] MEDS ORDERED: morphine SULFATE 10 MG/ML, 1ML IV ONE (12:00)
[2020-05-30] MEDS ORDERED: ONDANSETRON 2MG/ML, 2ML IVPush ONE (12:00)
--- NOTE | 2020-05-30 12:31 | NUR ---
PT TO MRI AT THIS TIME
--- NOTE | 2020-05-30 13:19 | NUR ---
PT RETURNED FROM MRI. RESTING IN [facility]. AWAITING RESULTS
[2020-05-30 14:04] VITALS: BP 116/54
--- NOTE | 2020-05-30 14:04 | NUR ---
PT RESTING IN [facility]. AWAITING MRI RESULTS
[2020-05-30] MEDS ORDERED: POTASSIUM CHLORIDE 20 MEQ TAB.ER.PRT PO ONE (15:00)
[2020-05-30] MEDS ORDERED: ONDANSETRON ODT 4 MG PO ONE (15:00)
[2020-05-30] MEDS ORDERED: ONDANSETRON ODT 4 MG ONE (15:02)
[2020-05-30] MEDS ORDERED: POTASSIUM CHLORIDE 20 MEQ TAB.ER.PRT ONE (15:02)
== END 2020-05-30 15:24 | disposition home or self-care (01) ==
LOC: ED 11:04
DX: O26.891 Other specified pregnancy related conditions, first trimester (principal); R55 Syncope and collapse; O21.1 Hyperemesis gravidarum with metabolic disturbance; Z3A.01 Less than 8 weeks gestation of pregnancy; Z86.718 Personal history of other venous thrombosis and embolism
CPT/HCPCS: 36415; 74181; 76801; 80048; 81001; 82040; 84702; 85025; 87086; 93005; 96361; 96374; 96375; 99285; J2270; J2405; J7030; Q0162

== ENCOUNTER 2020-06-30 07:49 | Outpatient (CLI) | payer OTHER ==
[2020-06-30 08:24] LABS: BASOPHILS % (AUTO) 1 % (0-1); EOSINOPHILS % (AUTO) 3 % (1-7); LYMPHOCYTES % (AUTO) 32 % (22-44); MEAN CORPUSCULAR HEMOGLOBIN 28.5 pg (27.0-34.8); MEAN CORPUSCULAR HGB CONC 33.1 g/dL (32.4-35.8); MEAN PLATELET VOLUME 7.7 fL (7.4-10.4); MONOCYTES % (AUTO) 8 % (2-9); NEUTROPHILS % (AUTO) 57 % (42-75); PLATELET COUNT 229 x10^3/uL (130-400); RED BLOOD COUNT 4.52 x10^6/uL (3.82-5.3); RED CELL DISTRIBUTION WIDTH 14.5 % (9.6-15.2)
[2020-06-30 08:35] LABS: ALANINE AMINOTRANSFERASE 16 U/L (12-78); ANION GAP 6 mmol/L (5-15); CHLORIDE 108 mmol/L (98-107); CHOLESTEROL, TOTAL 265 mg/dL (140-239); CREATININE 0.87 mg/dL (0.55-1.02)
[2020-06-30 08:37] LABS: MICROSCOPIC AUTO
[2020-06-30 08:45] LABS: ALKALINE PHOSPHATASE 49 U/L (45-117); BILIRUBIN,TOTAL 0.4 mg/dL (0.2-1.0); CHOL/HDL RATIO 5.5; HDL CHOL % 18 % (28-40); HDL CHOLESTEROL (DIRECT) 48 mg/dL (40-60); LDL CHOLESTEROL,CALCULATED 202 mg/dL (54-169); LDL/HDL RATIO 4.2 (0.5-3.0); TOTAL PROTEIN 7.5 g/dL (6.4-8.2); TRIGLYCERIDES 77 mg/dL (50-200); VLDL CHOLESTEROL 15 mg/dL (0-25)
[2020-06-30 08:47] LABS: MD NO
[2020-06-30 09:07] LABS: INTERNATIONAL NORMALIZED RATIO 1.02 (0.93-1.1); PROTHROMBIN TIME 10.9 Seconds (9.6-11.5)
== END 2020-06-30 23:59 | disposition home or self-care (01) ==
LOC: LAB 07:49
PROVIDERS: ATTEND Internal Medicine
DX: R31.29 Other microscopic hematuria (principal); E78.00 Pure hypercholesterolemia, unspecified; L65.9 Nonscarring hair loss, unspecified; R10.9 Unspecified abdominal pain; R73.01 Impaired fasting glucose; R73.03 Prediabetes; Z79.899 Other long term (current) drug therapy; Z86.718 Personal history of other venous thrombosis and embolism
CPT/HCPCS: 36415; 80053; 80061; 81001; 81241; 83036; 84443; 85025; 85210; 85300; 85301; 85303; 85306; 85598; 85610; 85613; 85670; 85730; 85732; 86146; 86147

== ENCOUNTER → 2020-11-02 | Outpatient (CLI) | payer OTHER ==
[~2020-11-02] MED LIST changes: +OXYC1TAB12 PO; -OXYC1TAB14 PO
[2020-11-02 08:48] LABS: BASOPHILS % (AUTO) 0 % (0-1); EOSINOPHILS % (AUTO) 1 % (1-7); LYMPHOCYTES % (AUTO) 23 % (22-44); MEAN CORPUSCULAR HEMOGLOBIN 29.2 pg (27.0-34.8); MEAN CORPUSCULAR HGB CONC 34.4 g/dL (32.4-35.8); MEAN PLATELET VOLUME 7.7 fL (7.4-10.4); MONOCYTES % (AUTO) 5 % (2-9); NEUTROPHILS % (AUTO) 71 % (42-75); PLATELET COUNT 208 x10^3/uL (130-400); RED BLOOD COUNT 4.24 x10^6/uL (3.82-5.3); RED CELL DISTRIBUTION WIDTH 13.3 % (9.6-15.2)
== END | disposition home or self-care (01) ==
LOC: LAB 07:25
PROVIDERS: ATTEND Student in an Organized Health Care Education/Training Program
DX: Z32.01 Encounter for pregnancy test, result positive (principal); B01.9 Varicella without complication
CPT/HCPCS: 36415; 82950; 85025; 86592; 86762; 86787; 86803; 86850; 86900; 87340; 87806; G0475